=== PATIENT | male | born 1960 | race Asian ===

== ENCOUNTER 2025-06-07 03:55 | Emergency (ER) | payer MEDICARE, OTHER ==
[~2025-06-07] VITALS: Ht 165.1 cm; Wt 60.0 kg
[~2025-06-07 03:55] MED LIST: ASPI-1444 PO; BACL10TA PO; BENA5TAB48 PO; CIPR-278 PO; CLOP75TA83 PO; DSS100 PO; FLUO10CA24 PO; GLIP10TA17 PO; LOVA20TA73 PO; METF-445 PO; METR500 PO
[2025-06-07 04:19] VITALS: TEMP 98.2
[2025-06-07 06:11] VITALS: BP 127/77; PULSE 66; RESP 13; O2SAT 96
[2025-06-07] MEDS ORDERED: PRED-554 PO ×2 (06:23→06:43)
[2025-06-07] MEDS ORDERED: DIPH25CA85 PO ×2 (06:23→06:43)
== END 2025-06-07 06:47 | disposition home or self-care (01) ==
LOC: EMS 03:59
DX: L50.0 Allergic urticaria (principal); E11.9 Type 2 diabetes mellitus without complications; E78.00 Pure hypercholesterolemia, unspecified; I10 Essential (primary) hypertension; Z90.49 Acquired absence of other specified parts of digestive tract; Z88.0 Allergy status to penicillin; Z86.73 Personal history of transient ischemic attack (TIA), and cerebral infarction without residual deficits; Z79.82 Long term (current) use of aspirin; Z79.02 Long term (current) use of antithrombotics/antiplatelets; Z79.899 Other long term (current) drug therapy
CPT/HCPCS: 99283; 96372; J1200; J7512